=== PATIENT | male | born 1955 | race African-American/Black ===

== ENCOUNTER 2019-10-09 20:21 | Emergency (ER) | payer MEDICARE, MEDICAID ==
[~2019-10-09] VITALS: Ht 177.8 cm; Wt 73.0 kg
[~2019-10-09 20:21] MED LIST: APIX5TAB MT; CLON0.1T14 MT; FAMO-135 MT; FURO-152 MT; LISI2.5T47 MT; LOPHC5 PO; SPIR50TA5 MT; TAMS0.4C31 MT
[2019-10-09 22:12] LABS: CLARITY URINE CLEAR (CLEAR); COLOR URINE YELLOW (YELLOW); KETONES URINE NEGATIVE (NEGATIVE); LEUKOCYTE ESTERASE URINE NEGATIVE (NEGATIVE); NITRITE URINE NEGATIVE (NEGATIVE); OCCULT BLOOD URINE NEGATIVE (NEGATIVE); PROTEIN URINE 1+ (NEGATIVE); SPECIFIC GRAVITY URINE 1.012 (1.005-1.030)
[2019-10-09] MEDS ORDERED: ONDANSETRON HCL 4MG/2ML INJ IV STA (22:16)
[2019-10-09] MEDS ORDERED: MORPHINE SULFATE 4 MG/ML CPJ (NOT FOR IM USE) IV STA (22:16)
[2019-10-09 23:19] LABS: BASOPHILS % 1.3 % (0.0-2.0); HEMATOCRIT. 32.6 % (42.0-52.0); HEMOGLOBIN. 10.9 g/dL (14.0-18.0); MEAN CORPUSCULAR HEMOGLOBIN 32.4 pg (28.0-32.0); MEAN CORPUSCULAR VOLUME 96.9 fL (80.0-94.0); MEAN PLATELET VOLUME 9.2 fl (7.4-10.4); MONOCYTES % 11.6 % (2.0-8.0); NEUTROPHILS % 61.1 % (40.0-76.0); PLATELET 146 x1000/uL (130-400); RED BLOOD CELL COUNT 3.36 mill/uL (4.7-6.1); RED CELL DISTRIBUTION WIDTH 14.7 % (11.6-14.6)
[2019-10-09 23:26] LABS: CHLORIDE 112 mEq/L (98-107)
[2019-10-10 03:52] VITALS: BP 187/114
== END 2019-10-10 04:10 | disposition home or self-care (01) ==
LOC: ER 20:21
DX: N40.1 Benign prostatic hyperplasia with lower urinary tract symptoms (principal); N39.0 Urinary tract infection, site not specified; R31.0 Gross hematuria; R33.8 Other retention of urine; I11.0 Hypertensive heart disease with heart failure; I50.9 Heart failure, unspecified; I48.91 Unspecified atrial fibrillation; Z79.01 Long term (current) use of anticoagulants
CPT/HCPCS: 36415; 74176; 80053; 81003; 85025; 87086; 93005; 96374; 96375; 99285; J2270; J2405

== ENCOUNTER 2020-12-02 20:05 | Emergency (ER) | payer MEDICARE, MEDICAID ==
[~2020-12-02] VITALS: Ht 188 cm; Wt 69.0 kg
[2020-12-02] MEDS ORDERED: SODIUM CHLORIDE 0.9% 1000ML BAG (SEPSIS BOLUS) IV ONE (20:30)
[2020-12-03 00:14] VITALS: BP 146/66
[2020-12-03] MEDS ORDERED: TAMS-11 MT (00:36)
== END 2020-12-03 01:12 | disposition home or self-care (01) ==
LOC: ER 20:05
DX: N40.1 Benign prostatic hyperplasia with lower urinary tract symptoms (principal); R33.8 Other retention of urine; I11.0 Hypertensive heart disease with heart failure; I50.9 Heart failure, unspecified; I48.91 Unspecified atrial fibrillation
CPT/HCPCS: 96360; 96361; 99284; J7030

== ENCOUNTER 2021-02-04 21:58 | Emergency (ER) | payer MEDICARE, MEDICAID ==
[~2021-02-04] VITALS: Ht 188 cm; Wt 73.0 kg
[~2021-02-04 21:58] MED LIST changes: +TAMS-11 MT
[2021-02-04 23:34] LABS: CHLORIDE 105 mEq/L (98-107)
[2021-02-04 23:42] LABS: CLARITY URINE CLOUDY (CLEAR); COLOR URINE DARK YELLOW (YELLOW); KETONES URINE TRACE (NEGATIVE); LEUKOCYTE ESTERASE URINE 2+ (NEGATIVE); NITRITE URINE NEGATIVE (NEGATIVE); OCCULT BLOOD URINE TRACE (NEGATIVE); PROTEIN URINE 3+ (NEGATIVE); SPECIFIC GRAVITY URINE 1.019 (1.005-1.030)
[2021-02-05] MEDS ORDERED: NITR-87 MT (00:22)
[2021-02-05 01:29] VITALS: BP 159/93
== END 2021-02-05 01:28 | disposition home or self-care (01) ==
LOC: ER 21:58
DX: N40.1 Benign prostatic hyperplasia with lower urinary tract symptoms (principal); R33.8 Other retention of urine; N39.0 Urinary tract infection, site not specified; I27.20 Pulmonary hypertension, unspecified; I50.9 Heart failure, unspecified; I48.91 Unspecified atrial fibrillation
CPT/HCPCS: 36415; 51702; 80048; 81003; 93005; 99284

== ENCOUNTER → 2021-03-20 | Outpatient (CLI) | payer MEDICARE, MEDICAID ==
[~2021-03-20] MED LIST changes: +IOHEXOL-300 100 ML BOTTLE ONE; +NITR-87 MT
== END | disposition home or self-care (01) ==
LOC: NM 07:58
PROVIDERS: ATTEND Urology
DX: C61 Malignant neoplasm of prostate (principal); N40.2 Nodular prostate without lower urinary tract symptoms; I51.7 Cardiomegaly; I50.9 Heart failure, unspecified; J98.11 Atelectasis; I31.3 Pericardial effusion (noninflammatory); I70.0 Atherosclerosis of aorta; I70.8 Atherosclerosis of other arteries; I77.810 Thoracic aortic ectasia; K76.89 Other specified diseases of liver; N28.1 Cyst of kidney, acquired; M47.816 Spondylosis without myelopathy or radiculopathy, lumbar region; R59.1 Generalized enlarged lymph nodes; R33.9 Retention of urine, unspecified; Z95.0 Presence of cardiac pacemaker; K80.20 Calculus of gallbladder without cholecystitis without obstruction
CPT/HCPCS: 74178; 78306; A9503; Q9967

== ENCOUNTER 2021-05-06 20:09 | Emergency (ER) | payer MEDICARE, MEDICAID ==
[~2021-05-06] VITALS: Ht 182.9 cm; Wt 69.0 kg
[~2021-05-06 20:09] MED LIST changes: -IOHEXOL-300 100 ML BOTTLE ONE
[2021-05-06 21:21] LABS: CLARITY URINE CLEAR (CLEAR); COLOR URINE YELLOW (YELLOW); KETONES URINE NEGATIVE (NEGATIVE); LEUKOCYTE ESTERASE URINE NEGATIVE (NEGATIVE); NITRITE URINE NEGATIVE (NEGATIVE); OCCULT BLOOD URINE 2+ (NEGATIVE); PH URINE 5.5 (4.5-8.0); PROTEIN URINE 3+ (NEGATIVE); SPECIFIC GRAVITY URINE 1.016 (1.005-1.030)
[2021-05-06 21:24] LABS: CHLORIDE 108 mEq/L (98-107)
[2021-05-06 21:30] VITALS: BP 142/86
[2021-05-06] MEDS ORDERED: CIPR-263 MT (22:50)
== END 2021-05-07 00:03 | disposition home or self-care (01) ==
LOC: ER 20:09
DX: R33.9 Retention of urine, unspecified (principal); I10 Essential (primary) hypertension; I48.91 Unspecified atrial fibrillation; Z85.46 Personal history of malignant neoplasm of prostate; Z79.01 Long term (current) use of anticoagulants; Z86.73 Personal history of transient ischemic attack (TIA), and cerebral infarction without residual deficits
CPT/HCPCS: 36415; 51702; 80048; 81003; 99284; A4315

== ENCOUNTER 2024-03-13 20:42 | Emergency (ER) | payer MEDICARE, MEDICAID ==
[~2024-03-13] VITALS: Ht 188 cm; Wt 76.0 kg
[~2024-03-13 20:42] MED LIST changes: +ALBU18HF2 IH; +AMLO2.5T45 PO; +APIX2.5T PO; -APIX5TAB MT; -CLON0.1T14 MT; +FLUT12AE INH; -LISI2.5T47 MT; -LOPHC5 PO; -NITR-87 MT; -SPIR50TA5 MT; -TAMS0.4C31 MT
[2024-03-13 20:52] VITALS: BP 134/70; PULSE 109; RESP 16; TEMP 98.4; O2SAT 99
[2024-03-14] MEDS: ACETAMINOPHEN 325MG TABLET PO ONE (02:36)
== END 2024-03-14 02:33 | disposition left against medical advice (07) ==
LOC: ER 20:42
DX: J02.9 Acute pharyngitis, unspecified (principal); Z53.21 Procedure and treatment not carried out due to patient leaving prior to being seen by health care provider

== ENCOUNTER 2025-02-08 03:59 | Inpatient (IN) | payer MEDICARE, MEDICAID ==
[~2025-02-08] VITALS: Ht 167.6 cm; Wt 63.2 kg
[~2025-02-08 03:59] MED LIST changes: +FURO-151 MT; -FURO-152 MT; -TAMS-11 MT; +TAMS-54 MT
[2025-02-08 07:47] LABS: HEMATOCRIT. 28.5 % (42.0-52.0); HEMOGLOBIN. 9.1 g/dL (14.0-18.0); MEAN PLATELET VOLUME 8.8 fl (7.4-10.4); PLATELET 146 x1000/uL (130-400); RED BLOOD CELL COUNT 3.00 mill/uL (4.7-6.1); RED CELL DISTRIBUTION WIDTH 17.0 % (11.6-14.6)
[2025-02-08 07:58] LABS: CREATININE 1.5 mg/dL (0.6-1.3)
[2025-02-08 07:59] LABS: PROTEIN TOTAL 7.6 g/dL (6.0-8.3); TROPONIN I HIGH SENSITIVITY 43 ng/L (3.0-53); UREA NITROGEN BLOOD 17 mg/dL (9-23)
[2025-02-08 08:00] LABS: ASPARTATE AMINOTRANSFERASE 34 IU/L (<34)
[2025-02-08 08:01] LABS: BILIRUBIN DIRECT 0.7 mg/dL (<=3.0); BILIRUBIN TOTAL 1.5 mg/dL (0.1-1.0); INR 1.1
[2025-02-08 08:10] LABS: CLARITY URINE CLEAR (CLEAR); COLOR URINE YELLOW (YELLOW); GLUCOSE URINE NEGATIVE (NEGATIVE); KETONES URINE TRACE (NEGATIVE); LEUKOCYTE ESTERASE URINE NEGATIVE (NEGATIVE); NITRITE URINE NEGATIVE (NEGATIVE); OCCULT BLOOD URINE 3+ (NEGATIVE); PH URINE 5.5 (4.5-8.0); PROTEIN URINE 2+ (NEGATIVE); SPECIFIC GRAVITY URINE 1.013 (1.005-1.030); UROBILINOGEN URINE 1.0 E.U./dL (0.2-1.0)
[2025-02-08] MEDS ORDERED: IPRATROPIUM/ALBUTEROL 0.5-3(2.5)MG/3ML NEB HHN PRN (08:45)
[2025-02-08] MEDS ORDERED: DOCUSATE SODIUM 100MG CAPSULE PO PRN (08:45)
[2025-02-08] MEDS ORDERED: GUAIFENESIN 200MG/10ML SUGAR FREE UDC PO PRN (08:45)
[2025-02-08] MEDS ORDERED: ACETAMINOPHEN 325MG TABLET PO PRN (08:45)
[2025-02-08] MEDS ORDERED: CLONIDINE 0.1MG TABLET PO PRN (08:45)
[2025-02-08] MEDS ORDERED: NITROGLYCERIN 0.4MG TABLET SL SL PRN (08:45)
[2025-02-08] MEDS ORDERED: MAGNESIUM/ALUMINUM HYDROXIDE/SIMETHICONE 30ML UDC PO PRN (08:45)
[2025-02-08 08:46] LABS: BACTERIA URINE 1+; HYALINE CASTS URINE 0-5 /lpf; SQUAMOUS EPITHELIAL CELL URINE RARE /lpf (RARE/1+); YEAST URINE NONE SEEN
[2025-02-08] MEDS ORDERED: IOHEXOL-350 100 ML BOTTLE ONE ×2 (09:54→09:55)
[2025-02-08 10:00] VITALS: BP 160/90; PULSE 90; RESP 18; TEMP 35.9732
[2025-02-08] MEDS: ACETAMINOPHEN 325MG TABLET PO PRN (10:23)
[2025-02-08] MEDS: ONDANSETRON HCL 4MG/2ML INJ IV PRN (10:23)
[2025-02-08] MEDS: AMLODIPINE 10MG TABLET PO SCH (10:58)
[2025-02-08] MEDS: APIXABAN 5 MG TABLET PO SCH (10:58)
[2025-02-08] MEDS: TAMSULOSIN HCL 0.4MG SR CAPSULE PO SCH (10:59)
[2025-02-08] MEDS: NICOTINE 14MG PATCH TD SCH (11:00)
[2025-02-08 11:26] LABS: TRIGLYCERIDE 53 mg/dL (0-150)
[2025-02-08 11:27] LABS: LDL CHOLESTEROL 53 mg/dL (5-100)
[2025-02-08 11:28] LABS: PHOSPHORUS 3.4 mg/dL (2.5-4.9)
[2025-02-08 11:31] LABS: T4 FREE 1.49 ng/dL (0.89-1.76)
[2025-02-08 11:32] LABS: FOLIC ACID (FOLATE) SERUM 16.30 ng/mL (>5.38); VITAMIN B12 SERUM 759 pg/mL (211-911)
[2025-02-08 12:38] LABS: BAND% 4.0 % (1.0-6.0); LYMPHOCYTES % MANUAL 19.0 % (20.0-50.0); MONOCYTES % MANUAL 5.0 % (2.0-8.0); NEUTROPHILS % MANUAL 72.0 % (45.0-75.0)
[2025-02-08 12:39] LABS: PLATELET ESTIMATE NORMAL
[2025-02-08] MEDS ORDERED: NALOXONE HCL 0.4MG/ML VIAL IV PRN (14:15)
[2025-02-08] MEDS: HYDROCODONE/ACETAMINOPHEN 5/325MG TABLET PO PRN (14:18)
[2025-02-08] MEDS: FERROUS SULFATE 325MG TABLET PO SCH (15:55)
[2025-02-08 16:00] VITALS: BP 128/82; PULSE 84; RESP 16; TEMP 36.4
[2025-02-08 16:56] LABS: CREATINE KINASE MB FRACTION 1.3 ng/mL (0.5-3.6); TROPONIN I HIGH SENSITIVITY 43 ng/L (3.0-53)
[2025-02-08 20:00] VITALS: BP 116/77; PULSE 66; RESP 19; TEMP 35.9
[2025-02-08] MEDS: FAMOTIDINE 20MG TABLET PO SCH (21:36)
[2025-02-08] MEDS: ATORVASTATIN CALCIUM 20MG TABLET PO SCH (21:36)
[2025-02-09 00:13] VITALS: BP 127/76; PULSE 63; RESP 19; TEMP 36.3; O2SAT 99
[2025-02-09 02:15] LABS: TROPONIN I HIGH SENSITIVITY 39 ng/L (3.0-53)
[2025-02-09 04:00] VITALS: BP 133/94; PULSE 99; RESP 22; TEMP 36.4; O2SAT 99
[2025-02-09 08:00] VITALS: BP 136/95; PULSE 89; RESP 20; TEMP 36.3; O2SAT 97
[2025-02-09] MEDS: ASPIRIN 81MG TABLET PO SCH (08:33)
[2025-02-09 11:22] LABS: TROPONIN I HIGH SENSITIVITY 44 ng/L (3.0-53)
[2025-02-09 11:27] LABS: CREATININE 1.6 mg/dL (0.6-1.3); UREA NITROGEN BLOOD 25.0 mg/dL (9-23)
[2025-02-09 12:00] VITALS: BP 128/86; PULSE 70; RESP 18; TEMP 36.3; O2SAT 96
[2025-02-09 14:24] LABS: *AMPHETAMINES SCREEN URINE NEGATIVE (NEGATIVE); *BARBITURATES SCREEN URINE NEGATIVE (NEGATIVE); *BENZODIAZEPINES SCREEN URINE NEGATIVE (NEGATIVE); *COCAINE SCREEN URINE NEGATIVE (NEGATIVE); CANNABINOID URINE SCREEN NEGATIVE (NEGATIVE); ECSTASY MDMA SCREEN URINE NEGATIVE (NEGATIVE); METHADONE URINE SCREEN NEGATIVE (NEGATIVE); OPIATES URINE SCREEN NEGATIVE (NEGATIVE); PHENCYCLIDINE URINE SCREEN NEGATIVE (NEGATIVE)
[2025-02-09 16:00] VITALS: BP 132/73; PULSE 72; RESP 18; TEMP 36.4; O2SAT 97
[2025-02-09] MEDS: FERROUS SULFATE 300MG/5ML UDC PO SCH (17:15)
[2025-02-10 04:00] VITALS: BP 138/84; PULSE 91; RESP 19; TEMP 36.7; O2SAT 98
[2025-02-10 08:00] VITALS: BP 155/96; PULSE 89; RESP 18; TEMP 36.5; O2SAT 100
[2025-02-10 08:16] LABS: PROTEIN TOTAL 7.0 g/dL (6.0-8.3)
[2025-02-10 08:17] LABS: CREATININE 1.8 mg/dL (0.6-1.3); UREA NITROGEN BLOOD 32 mg/dL (9-23)
[2025-02-10 08:19] LABS: ASPARTATE AMINOTRANSFERASE 28 IU/L (<34); BILIRUBIN TOTAL 1.1 mg/dL (0.1-1.0)
[2025-02-10] MEDS: FUROSEMIDE 40MG/4ML VIAL IVP NR (09:19)
[2025-02-10] MEDS: SODIUM POLYSTYRENE SULFONATE 15 G/60 ML BOT PO NR (09:19)
[2025-02-10] MEDS: CALCIUM CHLORIDE 1GM/10ML SYR IV NR (10:26)
[2025-02-10 11:20] VITALS: BP 144/89; PULSE 76; RESP 16; TEMP 98.8
[2025-02-10] MEDS: ALBUTEROL (0.083%) 2.5MG/3ML NEB HHN NR (11:24)
[2025-02-10 11:25] VITALS: PULSE 72; RESP 18; O2SAT 99
[2025-02-10 11:42] VITALS: BP 144/89; PULSE 76; RESP 16; TEMP 37.1; O2SAT 97
== END 2025-02-10 12:10 | disposition home or self-care (01) | DRG 291 ==
LOC: ER 03:59 → EDBEDREQ 08:37 → MICUSO 08:37 → EDBEDREQTM 08:37 → 6WST 17:47
PROVIDERS: ADMIT Internal Medicine; ATTEND Internal Medicine
DX: I13.0 Hypertensive heart and chronic kidney disease with heart failure and stage 1 through stage 4 chronic kidney disease, or unspecified chronic kidney disease (principal); I50.41 Acute combined systolic (congestive) and diastolic (congestive) heart failure; I73.9 Peripheral vascular disease, unspecified; I72.8 Aneurysm of other specified arteries; D53.9 Nutritional anemia, unspecified; Z79.01 Long term (current) use of anticoagulants; J44.9 Chronic obstructive pulmonary disease, unspecified; N18.31 Chronic kidney disease, stage 3a; I48.0 Paroxysmal atrial fibrillation; R31.9 Hematuria, unspecified; I25.10 Atherosclerotic heart disease of native coronary artery without angina pectoris; I87.2 Venous insufficiency (chronic) (peripheral); N50.89 Other specified disorders of the male genital organs; F17.210 Nicotine dependence, cigarettes, uncomplicated; Z95.0 Presence of cardiac pacemaker; Z95.5 Presence of coronary angioplasty implant and graft; Z79.899 Other long term (current) drug therapy; Z85.46 Personal history of malignant neoplasm of prostate; Z99.81 Dependence on supplemental oxygen
CPT/HCPCS: 36415; 71045; 72191; 73706; 76870; 80048; 80053; 80061; 80076; 80305; 81003; 82040; 82550; 82553; 82607; 82728; 82746; 83036; 83540; 83550; 83735; 83880; 84100; 84439; 84443; 84484; 85025; 85044; 93005; 93970; 93976; 94640; 94664; 97162; 99285; J1938; J2405; J3490; Q9967